=== PATIENT | female | born 1975 | race Asian ===

== ENCOUNTER 2016-06-05 09:53 | Emergency (ER) | payer OTHER, MEDICAID ==
[~2016-06-05] VITALS: Ht 162.6 cm; Wt 74.8 kg
[2016-06-05 10:06] VITALS: BP 154/91; PULSE 109; RESP 16; TEMP 97.2; O2SAT 96
--- NOTE | 2016-06-05 10:18 | NUR ---
Pt report received from MIGUEL A Lai. Father present with pt and states that while pt was going up stairs she became weak and fell into wall. Pt hit Left forehead and left shoulder into wall. Father states that she became briefly unresponsive. Abrasion noted to Left forehead. C/o pain to Left Shoulder, no deformities noted. Pt currently alert, responsive.
--- NOTE | 2016-06-05 10:18 | NUR ---
Patient to ER bed 1 to gown for evaluation. Side rails up. Report given to Cristiano GRADY.
--- NOTE | 2016-06-05 10:25 | NUR ---
Dr. Martinez at bedside to assess pt.
--- NOTE | 2016-06-05 10:45 | NUR ---
Pt to CT via stretcher.
--- NOTE | 2016-06-05 11:00 | NUR ---
Pt returns from CT.
--- NOTE | 2016-06-05 11:12 | NUR ---
Dr. Martinez at bedside to assess pt.
--- NOTE | 2016-06-05 11:47 | NUR ---
Dr. Martinez at bedside to discuss POC.
[2016-06-05 12:00] VITALS: BP 145/88; PULSE 96; RESP 20; TEMP 98; O2SAT 100
--- NOTE | 2016-06-05 12:00 | NUR ---
Patient given written and verbal discharge instructions and verbalizes understanding. ER MD discussed with patient the results and treatment provided. Patient in stable condition. ID arm band removed. Rx of Tylenol with Codeine given. Patient educated on pain management and to follow up with PMD. Pain Scale 2/10, tolerable. Opportunity for questions provided and answered.
== END 2016-06-05 12:00 | disposition home or self-care (01) ==
LOC: SED 09:53
DX: S42.252A Displaced fracture of greater tuberosity of left humerus, initial encounter for closed fracture (principal); S09.90XA Unspecified injury of head, initial encounter; R29.6 Repeated falls; R51 Headache; Z86.69 Personal history of other diseases of the nervous system and sense organs; W18.39XA Other fall on same level, initial encounter; Y93.01 Activity, walking, marching and hiking; Y99.8 Other external cause status; Y92.89 Other specified places as the place of occurrence of the external cause
CPT/HCPCS: 70450-TC; 72125-TC; 73030; 99284

== ENCOUNTER → 2021-03-29 | Emergency (ER) | payer OTHER, MEDICAID, SELFPAY ==
[~2021-03-29] VITALS: Ht 160 cm; Wt 65.8 kg
[2021-03-29 13:30] VITALS: BP_SYST 122
== END | disposition left against medical advice (07) ==
LOC: SED 12:39
DX: R50.9 Fever, unspecified (principal); Z53.21 Procedure and treatment not carried out due to patient leaving prior to being seen by health care provider